=== PATIENT | male | born 1940 | race Caucasian/White ===

== ENCOUNTER 2017-11-29 12:38 | Emergency (ER) | payer OTHER ==
[~2017-11-29] VITALS: Ht 182.9 cm; Wt 81.6 kg
[2017-11-29 13:30] LABS: ABSOLUTE BASOPHIL COUNT 0 /CUMM (0.0-0.2); ABSOLUTE EOSINOPHIL COUNT 0.1 /CUMM (0.0-0.7); ABSOLUTE GRANULOCYTE CT 6.7 /CUMM (1.4-6.5); ABSOLUTE LYMPH COUNT 1.6 /CUMM (1.2-3.4); ABSOLUTE MONOCYTE COUNT 0.7 /CUMM (0.10-0.60); BASOPHIL % 0.5 % (0.0-2.0); EOSINOPHIL % 1.6 % (0-5); GRANULOCYTE % 72.7 % (42.2-75.2); HEMATOCRIT 44.3 % (42-52); MEAN CORPUSCULAR HGB 31.3 PG (27.0-31.0); MEAN CORPUSCULAR HGB CONC 33.6 G/DL (33.0-37.0); MEAN CORPUSCULAR VOLUME 93.1 FL (80.0-94.0); MEAN PLATELET VOLUME 7.6 FL (7.4-10.4); PLATELET COUNT 212 /CUMM (130-400); RBC DISTRIBUTION WIDTH 14.7 % (11.5-14.5); RED BLOOD CELL CT 4.76 /CUMM (4.70-6.10); WHITE BLOOD CELL COUNT 9.2 /CUMM (4.8-10.8)
--- NOTE | 2017-11-29 13:47 | CT SCAN REPORT ---
EXAMINATION: CT HEAD WITHOUT CONTRAST CLINICAL INFORMATION: Fall with right parietal head laceration. Rule out fracture, subdural hemorrhage or subarachnoid hemorrhage. COMPARISON: None TECHNIQUE: Contiguous axial imaging was performed from the skull base to vertex without intravenous administration of contrast. DLP: 641.45 mGy-cm FINDINGS: There is no evidence of acute intracranial hemorrhage or territorial infarction. No abnormal mass effect or midline shift is seen. Osborne to white matter differentiation is well preserved. No extra-axial fluid collections are identified. The ventricles and sulci are mildly enlarged, consistent with involutional changes. There is mild periventricular deep white matter low-attenuation, consistent with mild ischemic small vessel disease. Small lacunar infarctions are seen in the basal ganglia bilaterally, of uncertain age. The patient is status post left ocular lens extraction. The osseous structures and soft tissues are normal. Small mucous retention cyst is seen in the frontal sinus (series 4, image 12). The mastoid air cells and visualized portions of the paranasal sinuses are otherwise well aerated. IMPRESSION: 1. No acute intracranial hemorrhage or other acute intracranial process. 2. Small age indeterminate lacunar infarctions are seen in the basal ganglia bilaterally, likely subacute to chronic. Changes of mild ischemic small vessel disease are noted in the periventricular deep white matter tracts. 3. Small mucous retention cyst in the frontal sinus.
--- NOTE | 2017-11-29 13:54 | ED HEAD/FACIAL INJ COMPLAINT ---
History of Present Illness General Chief Complaint: Laceration Procedure Stated Complaint: LAC TO HEAD S/P FALL Source: patient Exam Limitations: no limitations Vital Signs & Intake/Output Vital Signs & Intake/Output Vital Signs Date Time Temp Pulse Resp B/P B/P Pulse O2 O2 Flow FiO2 Mean Ox Delivery Rate 11/29 1416 97.7 58 16 130/68 97 Room Air 11/29 1303 97.1 67 16 97/63 97 Room Air Allergies Coded Allergies: No Known Allergies (11/29/17) Reconcile Medications Carbidopa/Levodopa (Carbidopa-Levodopa 25-100 Tab) 25 MG-100 MG TABLET 1 TAB PO TID PARKINSON (Reported) Rasagiline Mesylate 1 MG TABLET 1 TAB PO DAILY UNK (Reported) Triage Note: PT PRESENTS TO THE ER S/P FALL. PT HAS HX OF PARKINSONS AND LOST HIS FOOTING AND PER IS A FALL RISK. LAC TO TOP OF HEAD 2 INCHES AND BLEEDING IS CONTROLLED. -LOC PT TAKES 81MG ASPIRIN DAILY. Triage Nurses Notes Reviewed? yes Onset: Abrupt Severity: mild, moderate Severity Numbers: 8 Location: parietal Method of Injury: fall Loss of Consciousness: no loss of consciousness HPI: 77-year-old male past medical history of Parkinson's disease evaluation after a fall. Patient states that he was in his garage and turning around when his feet got tangled in themselves causing him to fall backwards. He has had on a car tire. No loss of consciousness. He is able to get up on his own. He was able to walk without difficulty. Reports a laceration located on top of his head and a mild headache. There is no dizziness lightheadedness chest pain or shortness of breath. No nausea or vomiting changes in vision. He takes a baby aspirin daily but no anticoagulants. Vital status at baseline according to is at the bedside. (Abimael Osei) Past History Travel History Traveled to [place] past 21 day No Medical History Any Pertinent Medical History? see below for history Neurological: Parkinson's disease EENT: NONE Cardiovascular: HYPOTENSION Respiratory: NONE Gastrointestinal: NONE Hepatic: NONE Renal: NONE Musculoskeletal: NONE Psychiatric: NONE Endocrine: NONE Tetanus Vaccine: 11/29/17 Surgical History Surgical History: non-contributory Psychosocial History What is your primary language Kinyarwanda Tobacco Use: Never used Family History Hx Contributory? No (Abimael Osei) Review of Systems Review of Systems Constitutional: Reports: no symptoms. EENTM: Reports: no symptoms. Respiratory: Reports: no symptoms. Cardiovascular: Reports: no symptoms. GI: Reports: no symptoms. Genitourinary: Reports: no symptoms. Musculoskeletal: Reports: no symptoms. Skin: Reports: see HPI (HEAD LAC ). Neurological/Psychological: Reports: headache. Hematologic/Endocrine: Reports: no symptoms. Immunologic/Allergic: Reports: no symptoms. All Other Systems: Reviewed and Negative (Abimael Osei) Physical Exam Physical Exam General Appearance: well developed/nourished, no apparent distress, alert, awake Head: normal appearance, THERE IS A 2.5 CENTIMETER CRESCENT-SHAPED LACERATION LOCATED OVER THE PARIETAL SCALP. sUBCUTANEOUS TISSUE IS VISIBLE. sMALL AMOUNT OF ACTIVE BLEEDING. sMALL SURROUNDING HEMATOMA. nO FOREIGN BODIES NO STANLEY SIGNS OR RACCOON EYES Eyes: Bilateral: normal appearance, PERRL, EOMI. Ears, Nose, Throat: hearing grossly normal Neck: normal inspection, supple, full range of motion Respiratory: normal breath sounds, chest non-tender, no respiratory distress, lungs clear Cardiovascular: regular rate/rhythm, normal peripheral pulses Gastrointestinal: normal bowel sounds, soft, non-tender, no organomegaly Back: normal inspection, normal range of motion Extremities: normal inspection, normal range of motion, no edema Psychiatric: awake, alert, oriented x 3 Cranial Nerves: normal hearing, normal speech, PERRL Coordination/Gait: normal finger to nose, normal gait Motor/Sensory: no motor/sensory deficits Skin: intact, normal color, warm/dry Lymphatic: no anterior cervical richelle (Abimael Osei) Progress Differential Diagnosis: facial fracture, ICH, orbit fracture, skull fracture, SCALP LACERATION, CONTUSION, CONCUSSION Plan of Care: Orders Procedure Date/time Status Heart Healthy Diet 11/29 D Active TROPONIN LEVEL 11/29 1305 Complete COMPREHENSIVE METABOLIC PANEL 11/29 1305 Complete CBC WITHOUT DIFFERENTIAL 11/29 1305 Complete EKG 11/29 1305 Active Laboratory Tests 11/29/17 1417: Anion Gap 10, Estimated GFR > 60, BUN/Creatinine Ratio 35.0 H, Glucose 108 H, Calcium 8.7, Total Bilirubin 0.9, AST 16 L, ALT 14 L, Alkaline Phosphatase 69, Troponin I < 0.01, Total Protein 5.8 L, Albumin 3.5, Globulin 2.3, Albumin/ Globulin Ratio 1.5 11/29/17 1320: CBC w Diff NO MAN DIFF REQ, RBC 4.76, MCV 93.1, MCH 31.3 H, MCHC 33.6, RDW 14.7 H, MPV 7.6, Gran % 72.7, Lymphocytes % 17.3 L, Monocytes % 7.9, Eosinophils % 1.6, Basophils % 0.5, Absolute Granulocytes 6.7 H, Absolute Lymphocytes 1.6, Absolute Monocytes 0.7 H, Absolute Eosinophils 0.1, Absolute Basophils 0 Patient seen and evaluated. He had a mechanical fall with head strike earlier today. No loss consciousness no anticoagulants. He is neurologically intact. On initial evaluation patient is borderline hypotensive. He reports that he is a previous history of this and that his blood pressure usually is 90s over 50s. He was given a liter of normal saline and basic blood work was obtained EKG and a CT scan of the brain. On reevaluation of fluids blood pressure normalized 130s over 80s. CT scan is negative. The scalp laceration was cleaned with sterile water and Betadine 3 karson were used to approximate the wound patient tolerated well. NO Complication. Tetanus was updated. Discussed wound care procedures. Remove karson in 7 days. Patient was ambulated he has a steady gait. Discussed return precautions. Patient agrees the plan. Case discussed with Dr. Anglin she agrees. Diagnostic Imaging: Viewed by Me: CT Scan. Discussed w/RAD: CT Scan. Radiology Impression: PATIENT: MARTELL KELLEY PRESENT AGE: 77 PATIENT ACCOUNT NO: [id number] : 40 LOCATION: [facility] ORDERING PHYSICIAN: Salima Canales MD SERVICE DATE: 11/29/17 EXAM TYPE: CAT - CT HEAD WO IV CONTRAST EXAMINATION: CT HEAD WITHOUT CONTRAST CLINICAL INFORMATION: Fall with right parietal head laceration. Rule out fracture, subdural hemorrhage or subarachnoid hemorrhage. COMPARISON: None TECHNIQUE: Contiguous axial imaging was performed from the skull base to vertex without intravenous administration of contrast. DLP: 641.45 mGy-cm FINDINGS: There is no evidence of acute intracranial hemorrhage or territorial infarction. No abnormal mass effect or midline shift is seen. Osborne to white matter differentiation is well preserved. No extra-axial fluid collections are identified. The ventricles and sulci are mildly enlarged, consistent with involutional changes. There is mild periventricular deep white matter low-attenuation, consistent with mild ischemic small vessel disease. Small lacunar infarctions are seen in the basal ganglia bilaterally, of uncertain age. The patient is status post left ocular lens extraction. The osseous structures and soft tissues are normal. Small mucous retention cyst is seen in the frontal sinus (series 4, image 12). The mastoid air cells and visualized portions of the paranasal sinuses are otherwise well aerated. IMPRESSION: 1. No acute intracranial hemorrhage or other acute intracranial process. 2. Small age indeterminate lacunar infarctions are seen in the basal ganglia bilaterally, likely subacute to chronic. Changes of mild ischemic small vessel disease are noted in the periventricular deep white matter tracts. 3. Small mucous retention cyst in the frontal sinus. DICTATED BY: Avinash HOLDER,Anu May DATE/TIME DICTATED:11/29/171334 NEUROPSYCHOLOGIST:PASCUAL DATE /TIME TRANSCRIBED:11/29/171334 CONFIDENTIAL, DO NOT COPY WITHOUT APPROPRIATE AUTHORIZATION. Initial ED EKG: normal sinus rhythm, LOW VOLTAGE IN FRONTAL LEADS (Abimael Osei) Departure Departure Disposition: HOME OR SELF CARE Condition: Stable Clinical Impression Primary Impression: Laceration of head Qualifiers: Encounter type: initial encounter Location of open wound of head: scalp Foreign body presence: without foreign body Qualified Code: S01.01XA - Laceration without foreign body of scalp, initial encounter Referrals: Stanton HOLDER,Cameron Chawla (PCP/Family) Additional Instructions: Keep the area clean and dry. Change dressing once daily. Gallina for signs of infection like redness swelling discharge or pain. Tylenol as needed for pain. The karosn come out in 7 days. Return sooner with any concerns. Departure Forms: Customer Survey General Discharge Information (Abimael Osei) PA/ENVIRONMENTAL EDUCATOR Co-Sign Statement Statement: ED Attending supervision documentation- [X] I saw and evaluated the patient. I have also reviewed all the pertinent lab results and diagnostic results. I agree with the findings and the plan of care as documented in the PA's/ENVIRONMENTAL EDUCATOR's documentation. [X] I have reviewed the ED Record and agree with the PA's/ENVIRONMENTAL EDUCATOR's documentation. [] Additions or exceptions (if any) to the PAs/ENVIRONMENTAL EDUCATOR's note and plan are summarized below: [] (Derrek HOLDER,Sarahi)
[2017-11-29 14:16] VITALS: BP 130/68
[2017-11-29] MEDS ORDERED: RASAGILINE MESYL1 MG PO (14:38)
[2017-11-29] MEDS ORDERED: CARBIDOPA-LEVO1 EAC7 PO (14:38)
== END 2017-11-29 15:05 ==
LOC: ERH 12:38
PROVIDERS: Internal Medicine
DX: S01.01XA Laceration without foreign body of scalp, initial encounter (principal); W19.XXXA Unspecified fall, initial encounter; Y92.015 Private garage of single-family (private) house as the place of occurrence of the external cause; Y92.9 Unspecified place or not applicable; Y93.9 Activity, unspecified
CPT/HCPCS: 90471; 90714; 93005; 93010; 96360; 96361